=== PATIENT | female | born 1950 | race Caucasian/White ===

== ENCOUNTER 2021-11-05 09:26 | Outpatient (REF) | payer MEDICARE, SELFPAY ==
[2021-11-05 11:38] LABS: MANUAL DIFF FLAG NO
[2021-11-05 11:50] LABS: Basophils Percent Auto 0.9 % (0-2); Eosinophils Absolute Auto 0.1 X10*3/uL (0.0-0.4); Hematocrit 41.6 % (37.0-47.0); Imm Gran Abs Auto 0.01 X10*3/uL (0.00-0.03); Imm Gran Pct Auto 0.2 % (0.0-0.4); Lymphocytes Absolute Auto 1.7 X10*3/uL (1.2-4.9); Lymphocytes Percent Auto 35.8 % (20-40); Mean Corpuscular HGB Conc 33.7 g/dl (31.0-35.0); Mean Corpuscular Hemoglobin 29.4 pg (27.0-33.0); Mean Corpuscular Volume 87.2 fL (80.0-98.0); Mean Platelet Volume 9.2 fL (9.4-12.3); Monocytes Absolute Auto 0.3 X10*3/uL (0.1-1.2); Monocytes Percent Auto 5.4 % (2-11); Neutrophils Absolute Auto 2.5 x10*3/uL (2.0-8.3); Neutrophils Percent Auto 54.7 % (45-73); Platelet Count 279 X10*3/uL (160-400); Red Blood Count 4.77 X10*6/uL (4.20-5.50); White Blood Count 4.6 X10*3/uL (4.8-10.8)
[2021-11-05 12:17] LABS: Vitamin D 25-OH Total 24.1 ng/mL (>30)
[2021-11-05 12:28] LABS: Folate 8.5 ng/mL (> or = 4.0); Vitamin B12 173 pg/mL (200-900)
[2021-11-05 12:42] LABS: Alanine Aminotransferase 21 U/L (0-31); Albumin Level 4.2 g/dL (3.5-5.0); Alkaline Phosphatase 85 U/L (39-117); Anion Gap 14 (12-20); Aspartate Amino Transferase 28 U/L (5-31); Bilirubin Total 0.7 mg/dL (0.0-1.0); Blood Urea Nitrogen 17 mg/dL (9-16); Calcium 10.5 mg/dL (8.4-10.2); Carbon Dioxide 24 mmol/L (22-29); Chloride 110 mmol/L (96-108); Cholesterol 192 mg/dL; Estimated Glomerular Filt Rate > 60; Glucose Fasting 100 mg/dL (60-99); HDL Cholesterol 69 mg/dL; LDL Cholesterol Calculated 108 mg/dl; Potassium 4.6 mmol/L (3.3-5.1); Sodium 143 mmol/L (135-145); Total Protein 6.6 g/dL (6.5-8.0); Triglycerides 78 mg/dL
== END 2021-11-05 09:27 | disposition home or self-care (01) ==
LOC: HO.HMGCLDS 09:26
PROVIDERS: PCP Internal Medicine; Visit Provider Internal Medicine
DX: Z00.00 Encounter for general adult medical examination without abnormal findings (principal); E53.8 Deficiency of other specified B group vitamins; E55.9 Vitamin D deficiency, unspecified
CPT/HCPCS: 36415; 80053; 80061; 82306; 82607; 82746; 84443; 85025

== ENCOUNTER 2022-02-05 09:44 | Outpatient (REF) | payer MEDICARE, SELFPAY ==
[2022-02-05 12:56] LABS: Vitamin D 25-OH Total 32.1 ng/mL (>30)
[2022-02-05 13:00] LABS: Folate 9.8 ng/mL (> or = 4.0); Vitamin B12 534 pg/mL (200-900)
[2022-02-09 11:43] LABS: Calcium, Ionized 6.1 mg/dL (4.8-5.6)
== END 2022-02-05 09:45 | disposition home or self-care (01) ==
LOC: HO.HMGCLDS 09:44
PROVIDERS: PCP Internal Medicine; Visit Provider Internal Medicine
DX: E53.8 Deficiency of other specified B group vitamins (principal); E55.9 Vitamin D deficiency, unspecified
CPT/HCPCS: 36415; 82306; 82330; 82607; 82746

== ENCOUNTER → 2022-02-10 15:33 | Outpatient (BNVA) | payer MEDICARE, SELFPAY | PROVIDERS: PCP Internal Medicine; Visit Provider Internal Medicine Endocrinology, Diabetes & Metabolism | DX: E83.52 Hypercalcemia (principal) | CPT/HCPCS: 99202 ==

== ENCOUNTER 2022-03-02 10:09 | Outpatient (REF) | payer MEDICARE, SELFPAY ==
[2022-03-02 11:03] LABS: Creatinine, mg/dL 98.02
[2022-03-02 12:44] LABS: Total Volume 24 Hour Urine 1050 mL
[2022-03-05 21:38] LABS: Calcium, 24 Hr Urine 260 mg/24 h; Calcium/Creatinine Ratio 261 mg/g creat (30-275)
== END 2022-03-02 10:10 | disposition home or self-care (01) ==
LOC: HO.LNP 10:09
PROVIDERS: Visit Provider Internal Medicine Endocrinology, Diabetes & Metabolism
DX: E83.52 Hypercalcemia (principal)
CPT/HCPCS: 82340; 82570

== ENCOUNTER 2022-03-09 09:14 | Outpatient (REF) | payer MEDICARE, SELFPAY ==
--- NOTE | ~2022-03-09 | MM_ITS ---
EXAMINATION: BONE DENSITOMETRY CLINICAL INDICATION: Hypercalcemia. COMPARISON: None (current study represents initial baseline exam). TECHNIQUE: Using a [employer] DXA System (software version: 13.1) manufactured by [employer], dual-energy x-ray absorptiometry was performed of the lumbar spine and left hip. The images are of good technical quality. Summary results are attached. FINDINGS: AP SPINE L1-L3 (excluding L4): The data of L1-L4 has been changed to exclude the L4 vertebral body, because degenerative changes at this level may cause overestimation of lumbar spine density. BMD 0.755 g/cm2, Z-score -1.8, T-score -3.5, osteoporosis. LEFT FEMUR, NECK: BMD 0.733 g/cm2, Z-score -0.4, T-score -2.2, osteopenia. LEFT FEMUR, TOTAL: BMD 0.743 g/cm2, Z-score -0.5, T-score -2.1, osteopenia. IDENTIFIED RISK FACTORS: Family history (parent hip fracture), menopause. HISTORY OF FRACTURE: None listed. MEDICATIONS: Vitamin D. MM/XR DEXA axial skeleton IMPRESSION: 1. DIAGNOSIS: Osteoporosis based on the lowest T-score value of -3.5 in the lumbar spine applying World Health Organization criteria. 2. 10-YEAR FRACTURE RISK PREDICTION, FRAX: According to the guidelines, FRAX calculation should only be performed on patients in the osteopenia bone density category. Therefore, FRAX was not performed on this patient. 3. Treatment Recommendations: NOF guidelines recommend consideration for treatment in postmenopausal women and men age 50 and older presenting with the following: -A hip or vertebral (clinical or morphometric) fracture. -T-score less than or equal to -2.5 at the femoral neck or spine after appropriate evaluation to exclude secondary causes. -Low bone mass at the hip or spine and a 10-year fracture probability by FRAX of greater than or equal to 3% for hip fracture or greater than or equal to 20% for major osteoporotic fracture based on the [place] adapted WHO algorithm. 4. Other Recommendations: All treatment decisions require clinical judgment and consideration of individual patient factors, including patient preferences, comorbidities, previous drug use, risk factors not captured in the FRAX model (e.g. frailty, falls, vitamin D deficiency, increased bone turnover, interval significant decline in bone density) and possible under or overestimation of fracture risk by FRAX. Additional medical evaluation for secondary cause of low bone mineral density may be appropriate. FUTURE SCAN RECOMMENDATION: People with diagnosed cases of osteoporosis or at high risk for fracture should have regular bone mineral density tests. For patients eligible for Medicare, routine testing is allowed once every 2 years. The testing frequency can be increased to one year for patients who have rapidly progressing disease, those who are receiving or discontinuing medical therapy to restore bone mass, or have additional risk factors.
== END 2022-03-09 09:15 | disposition home or self-care (01) ==
LOC: HO.MAMMO 09:14
PROVIDERS: Visit Provider Internal Medicine Endocrinology, Diabetes & Metabolism
DX: Z13.820 Encounter for screening for osteoporosis (principal); Z78.0 Asymptomatic menopausal state; M81.0 Age-related osteoporosis without current pathological fracture; E83.52 Hypercalcemia
CPT/HCPCS: 77080

== ENCOUNTER 2022-03-15 15:21 | Outpatient (REF) | payer MEDICARE, SELFPAY ==
--- NOTE | ~2022-03-15 | US_ITS ---
EXAMINATION: US RETROPERITONEAL LIMITED (RENAL ONLY) CLINICAL INFORMATION: Hypercalcemia. COMPARISON: None TECHNIQUE: Real-time imaging of the kidneys. FINDINGS: RIGHT KIDNEY: 10.1 x 4.1 x 4.9 cm (SAG x AP x TRV). The kidney is normal in size, contour, and echogenicity. Renal cortical thickness is normal. No renal calculi or hydronephrosis. Benign-appearing renal cysts measuring up to 1.7 cm. LEFT KIDNEY: 10.3 x 4.0 x 4.0 cm (SAG x AP x TRV). The kidney is normal in size, contour, and echogenicity. Renal cortical thickness is normal. No renal calculi or hydronephrosis. Benign-appearing subcentimeter cysts. US/US renal BI IMPRESSION: Bilateral benign-appearing renal cysts. Followup imaging is not routinely recommended for benign appearing cysts.
== END 2022-03-15 15:22 | disposition home or self-care (01) ==
LOC: HO.HMGCX 15:21
PROVIDERS: PCP Internal Medicine; Visit Provider Internal Medicine Endocrinology, Diabetes & Metabolism
DX: E83.52 Hypercalcemia (principal)
CPT/HCPCS: 76775

== ENCOUNTER → 2022-03-30 10:35 | Outpatient (BNVA) | payer MEDICARE, SELFPAY | PROVIDERS: PCP Internal Medicine; Visit Provider Internal Medicine Endocrinology, Diabetes & Metabolism | DX: E83.52 Hypercalcemia (principal); E21.0 Primary hyperparathyroidism | CPT/HCPCS: 99212 ==

== ENCOUNTER 2022-05-12 08:33 | Outpatient (REF) | payer MEDICARE, SELFPAY ==
--- NOTE | ~2022-05-12 | XR_ITS ---
EXAMINATION: XR RIBS, LEFT CLINICAL INFORMATION: Pain COMPARISON: None TECHNIQUE: Single view of the chest and 3 detailed views of the left ribs FINDINGS: Chest image demonstrates no evidence for effusion. No pneumothorax. The cardiac silhouette is within normal limits. Detailed imaging of the left ribs does not demonstrate evidence of fracture. No underlying rib finding. Degenerative change in left shoulder is noted. XR/XR ribs LT min 3V w CXR1V IMPRESSION: No pneumothorax or effusion. No underlying left rib fracture.
== END 2022-05-12 08:34 | disposition home or self-care (01) ==
LOC: HO.HMGCX 08:33
PROVIDERS: PCP Internal Medicine; Visit Provider Nurse Practitioner Family
DX: R07.81 Pleurodynia (principal)
CPT/HCPCS: 71101

== ENCOUNTER 2022-09-22 09:04 | Outpatient (AMB) | payer MEDICARE, SELFPAY ==
--- NOTE | 2022-09-22 09:08 | A.OFFVIS_ITS ---
Intake Vital Signs 09/22/22 09:09 Height 5 ft 5 in Weight 142 lb 3.17 oz BMI 23.7 BP 106/70 Blood Pressure Location Lt brachial Position Sitting Pulse 72 Pulse Source Pulse Oximeter Intake Visit Reasons: Hyperparathyroidism, post surgery Intake Note: Patient present for Hyperparathyroidism, post surgery follow up visit. Nurse Anesthesia Program Director Required: No Accompanied by: Self / Same As Patient Allergies No Known Allergies Allergy (Verified 09/22/22 09:10) Medication List - Last Reconciled 09/22/22 by Ricardo Thakkar MD [id number] 325 mg-12.5 mcg -2.75 mg (Citracal-D3 Maximum Plus) 2 tabs PO DAILY cyanocobalamin (vitamin B-12) 1,000 mcg PO DAILY HPI HPI Comments History of Present Illness Details This 72-year-old white female with history of primary hyperparathyroidism status post removal [address] Sena with normalization of PTH. PFSH Medical History Hx of complete eye exam Surgical History H/O colonoscopy H/O tubal ligation Hx of appendectomy Hx of parathyroidectomy Family History Father No problems noted. Mother COPD (chronic obstructive pulmonary disease) Congestive heart failure Social History Household Members: None Household Members Other:: lives alone, 3 daughters (in [place] and [place]), retired Housing: House Patient Tobacco Use Status: Former Tobacco user e-Cigarette/Vaping Use: Never Used Current occupational status: retired Cognitive needs: No Hearing needs: No Vision needs: Yes Physical Exam Vital Signs: BMI result Body Mass Index 23.7 Assessment & Plan Assessment & Plan (1) Hypercalcemia: Code(s): E83.52 - Hypercalcemia Plan: 72-year-old white female with a history of primary hyperparathyroidism status post parathyroidectomy. Pathology revealed 3 hyperplastic parathyroid glands. Plan is to recheck calcium and PTH. Assuming above is normal, patient returned to the care of her primary care provider and endocrinology as needed Orders: Orders PTHI Today E83.52 - Hypercalcemia Coding Level of Care Code Est Pt Level 3 (91049) Diagnoses Hypercalcemia E83.52
[2022-09-22 09:09] VITALS: BP 106/70; PULSE 72; BMI 23.7
== END 2022-09-22 09:46 | disposition home or self-care (01) ==
PROVIDERS: PCP Internal Medicine; Visit Provider Internal Medicine Endocrinology, Diabetes & Metabolism
DX: E83.52 Hypercalcemia (principal)
CPT/HCPCS: 99213

== ENCOUNTER → 2022-09-22 09:04 | Outpatient (BNVA) | payer MEDICARE, SELFPAY | PROVIDERS: Visit Provider Internal Medicine Endocrinology, Diabetes & Metabolism | DX: E83.52 Hypercalcemia (principal) | CPT/HCPCS: 99212 ==

== ENCOUNTER 2022-09-22 09:53 | Outpatient (REF) | payer MEDICARE, SELFPAY ==
[2022-09-22 13:44] LABS: Calcium 9.7 mg/dL (8.4-10.2)
[2022-09-25 05:43] LABS: Calcium (PTHI) 9.4 mg/dL (8.6-10.4); PTHI 45 pg/mL (16-77)
== END 2022-09-22 09:54 | disposition home or self-care (01) ==
LOC: HO.10HDL 09:53
PROVIDERS: Visit Provider Internal Medicine Endocrinology, Diabetes & Metabolism
DX: E83.52 Hypercalcemia (principal)
CPT/HCPCS: 36415; 82310; 83970

== ENCOUNTER 2022-12-06 11:21 | Outpatient (AMB) | payer MEDICARE, SELFPAY ==
[2022-12-06 11:44] VITALS: BP 100/66; PULSE 66; O2SAT 96; BMI 23.6
--- NOTE | 2022-12-06 11:44 | A.OFFPC_ITS ---
Vital Signs 12/06/22 11:44 Height 5 ft 5 in Weight 142 lb BMI 23.6 BP 100/66 Blood Pressure Location Lt brachial Position Sitting Pulse 66 Pulse Source Pulse Oximeter Pulse Oximetry (%) 96 Oxygen Delivery Method Room Air Intake Visit Reasons: Annual PE Intake Note: Pt is here today for PE. Allergies No Known Allergies Allergy (Verified 12/06/22 11:46) Medication List - Last Reconciled 12/06/22 by Shelia Krishnan MD [id number] 325 mg-12.5 mcg -2.75 mg (Citracal-D3 Maximum Plus) 2 tabs PO DAILY cyanocobalamin (vitamin B-12) 1,000 mcg PO DAILY Tobacco use date assessed: 12/06/22 Fall risk assessment: 1 Fall in past year Last assessed Fall Risk: 12/06/22 Dental Screening Dental Screen Date: 12/06/22 Did you have a dental visit in the last 12 months?: Yes Did you have a dental problem in the last 6 months where you did not have access to dental care?: No Was dental information given to patient?: Patient has dentist HPI Annual PE HPI Details Pt presents for PE. Pt reports feeling sad, depressed, and lonely since she retired. She thinks her adult children do spend enough time with her or call her as often as she would prefer. Patient denies suicidal ideation. She tried medications in the past with good effect. [facility] Medical History Hx of complete eye exam Surgical History Hx of parathyroidectomy H/O colonoscopy Hx of appendectomy H/O tubal ligation Family History Father No problems noted. Mother COPD (chronic obstructive pulmonary disease) Congestive heart failure Social History Household Members: None Household Members Other:: lives alone, 3 daughters (in [place] and [place]), retired Housing: House Patient Tobacco Use Status: Former Tobacco user e-Cigarette/Vaping Use: Never Used Current occupational status: retired Cognitive needs: No Hearing needs: No Vision needs: Yes Questionnaire PHQ-9 Over the last 2 weeks, how often have you been bothered by any of the following problems? 1. Little interest or pleasure in doing things: nearly every day 2. Feeling down, depressed, or hopeless: nearly every day 3. Trouble falling or staying asleep, or sleeping too much: nearly every day 4. Feeling tired or having little energy: more than half the days 5. Poor appetite or overeating: more than half the days 6. Feeling bad about yourself - or that you are a failure or have let yourself or your family down: more than half the days 7. Trouble concentrating on things, such as reading the newspaper or watching television: more than half the days 8. Moving or speaking so slowly that other people could have noticed. Or the opposite - being so fidgety or restless that you have been moving around a lot more than usual: not at all 9. Thoughts that you would be better off or of hurting yourself in some way: not at all Total score: 17 Depression Screening Interpretation: Positive Source: Developed by Drs. Ricardo Campuzano, Cynthia Qureshi, Miguel Meraz and colleagues, with an educational peace from [employer] Thrive Questionnaire Date Thrive assessed: 12/06/22 I am a: Patient What is your living situation today?: I have a steady place to live Within the past 12 months, did the food you bought not last and you didn't have the money to get more?: Never true Within the past 12 months, did you worry whether your food would run out before you got money to buy more?: Never true Do you have trouble paying for medicines?: No Do you have trouble getting transportation to medical appointments?: No Do you have trouble paying your heating and electricity bill?: No Do you have trouble taking care of your child, family member or friend?: No Do you have trouble with day-to-day activities such as bathing, preparing meals, shopping, managing finances, etc.?: Yes Are you currently unemployed and looking for a job?: No Are you interested in more education?: No AUDIT C Alcohol Use Questionnaire (AUDIT-C) 1. How often do you have a drink containing alcohol?: Monthly or less 2. How many drinks containing alcohol do you have on a typical day when you are drinking?: 1 or 2 3. How often do you have six or more drinks on one occasion?: Never Total Score: 1 RENU-7 AMB Questionnaire RENU-7 Date RENU - 7 assessed: 12/06/22 Feeling nervous, anxious, or on edge: 3 = Nearly every day Not being able to stop or control worryin = Nearly every day Worrying too much about different things: 3 = Nearly every day Trouble relaxin = More than half the days Being so restless that it is hard to sit still: 0 = Not at all Becoming easily annoyed or irritable: 2 = More than half the days Feeling afraid as if something awful might happen: 1 = Several days Total RENU-7 score (0-4 normal; 5-9 mild; 10-14 moderate; 15-21 severe): 14 Source: Developed by Drs. Ricardo Campuzano, Cynthia Qureshi, Miguel Meraz and colleagues, with an educational peace from [employer] Review of Systems Const All systems reviewed & are unremarkable except as noted in HPI and below Reports no additional complaints Eyes Reports no additional complaints ENT Reports no additional complaints Card Reports no additional complaints Resp Reports no additional complaints GI Reports no additional complaints Reports no additional complaints Physical exam (Primary Care) Vital Signs: Last Vital Signs Pulse 66 12/06/22 11:44 BP 100/66 12/06/22 11:44 Pulse Ox 96 12/06/22 11:44 Oxygen Delivery Method Room Air 12/06/22 11:44 BMI result Body Mass Index 23.6 Tobacco/Smoking Status: Tobacco use Status Tobacco use date assessed 12/06/22 12/06/22 11:50 Patient Tobacco Use Status Former Tobacco user 12/06/22 11:50 e-Cigarette/Vaping Use Never Used 12/06/22 11:50 PHQ-9: PHQ-9 Score PHQ-9: Total score 17 12/06/22 12:20 Depression Screening Interpretation: Positive Thrive Assessment: Date of Thrive Assessment Date Thrive assessed 12/06/22 12/06/22 12:20 Const General: no acute distress HENMT Head: Yes normal to inspection General nose exam: Normal external nose present Mouth: Normal oral and palatal mucosa present Eyes General: appearance normal, both eyes and all related structures Neck Neck: Yes no lymphadenopathy and Yes supple Resp Effort & Inspection: normal respiratory effort Auscultation: clear to auscultation bilaterally Cardio Rhythm: regular rhythm Heart sounds: S1 normal heart sound present and S2 normal heart sound present GI Inspection: Yes normal to inspection Palpation (GI): Soft to palpation Percussion: Yes normal to percussion Auscultation: normal bowel sounds Assessment and Plan Assessment & Plan (1) Hypercalcemia: Comment: S/P parathyroidectomy Code(s): E83.52 - Hypercalcemia Plan: Follow-up with endocrinology (2) Annual physical exam: Code(s): Z00.00 - Encounter for general adult medical examination without abnormal findings (3) Vitamin D deficiency: Code(s): E55.9 - Vitamin D deficiency, unspecified Plan: Well-balanced diet regular physical activity discussed with the patient. She is up-to-date with the mammogram and colonoscopy. (4) Anxiety and depression: Code(s): F41.9 - Anxiety disorder, unspecified; F32.A - Depression, unspecified Plan: Patient will be referred to counseling and Zoloft 25 mg daily will be started. She will follow-up in 6 weeks Orders: Orders Lipid Panel Today E55.9 - Vitamin D deficiency, unspecified, E83.52 - Hypercalcemia, Z00.00 - Encounter for general adult medical examination without abnormal findings Comprehensive [place]. Panel Fast 365 Days F32.A - Depression, unspecified, F41.9 - Anxiety disorder, unspecified Complete Blood Count Auto Diff 365 Days E53.8 - Deficiency of other specified B group vitamins, E55.9 - Vitamin D deficiency, unspecified, F32.A - Depression, unspecified, F41.9 - Anxiety disorder, unspecified, Z00.00 - Encounter for general adult medical examination without abnormal findings Comprehensive [place]. Panel Fast Today E55.9 - Vitamin D deficiency, unspecified, E83.52 - Hypercalcemia, Z00.00 - Encounter for general adult medical examination without abnormal findings Complete Blood Count Auto Diff Today E55.9 - Vitamin D deficiency, unspecified, E83.52 - Hypercalcemia, Z00.00 - Encounter for general adult medical examination without abnormal findings Lipid Panel 365 Days F32.A - Depression, unspecified, F41.9 - Anxiety disorder, unspecified TSH reflex Free T4 365 Days F32.A - Depression, unspecified, F41.9 - Anxiety disorder, unspecified Referrals Counseling Referral F32.A - Depression, unspecified, F41.9 - Anxiety disorder, unspecified Medications: New sertraline (Zoloft) 25 mg PO DAILY 90 tabs 0RF Coding Level of Care Code Est Pt Prev Care >65y(26582) Diagnoses Hypercalcemia E83.52 Annual physical exam Z00.00 Vitamin D deficiency E55.9 Anxiety and depression F41.9; F32.A
== END 2022-12-06 12:38 | disposition home or self-care (01) ==
PROVIDERS: Visit Provider Internal Medicine
DX: Z00.00 Encounter for general adult medical examination without abnormal findings (principal); E83.52 Hypercalcemia; F41.9 Anxiety disorder, unspecified; F32.A Depression, unspecified
CPT/HCPCS: 99397

== ENCOUNTER 2022-12-14 08:44 | Outpatient (REF) | payer MEDICARE, SELFPAY | END 2022-12-14 08:45 | disposition home or self-care (01) | LOC: HO.HMGCLDS 08:44 | PROVIDERS: PCP Internal Medicine; Visit Provider Internal Medicine | DX: Z00.00 Encounter for general adult medical examination without abnormal findings (principal); E55.9 Vitamin D deficiency, unspecified | CPT/HCPCS: 36415; 80053; 80061; 85025 ==

== ENCOUNTER 2023-01-17 10:54 | Outpatient (AMB) | payer MEDICARE, SELFPAY ==
--- NOTE | 2023-01-17 11:08 | MHC.PC.OV ---
Vital Signs 01/17/23 11:16 Height 5 ft 5 in Weight 148 lb BMI 24.6 BP 110/72 Blood Pressure Location Lt brachial Position Sitting Pulse 52 Pulse Source Pulse Oximeter Pulse Oximetry (%) 96 Oxygen Delivery Method Room Air Intake Visit Reasons: 6 week follow up Allergies No Known Allergies Allergy (Verified 01/17/23 11:17) Medication List - Last Reconciled 01/17/23 by Shelia Krishnan MD [id number]-jono 325 mg-12.5 mcg -2.75 mg (Citracal-D3 Maximum Plus) 2 tabs PO DAILY cyanocobalamin (vitamin B-12) 1,000 mcg PO DAILY sertraline (Zoloft) 25 mg PO DAILY Tobacco use date assessed: 12/06/22 Fall risk assessment: 1 Fall in past year Last assessed Fall Risk: 01/17/23 HPI 6 week follow up HPI Details Pt presents for f/u anxiety, slightly better. Patient still complains of insomnia and occasionally feeling lonely. She has been getting more involved with senior center and meeting new people. Pt is going on vacation to [facility] for Thanksgiving. Patient had a biopsy of right foot lesion by shochet and reports area getting red painful and slightly swollen. [facility] Medical History Hx of complete eye exam Surgical History Hx of parathyroidectomy H/O colonoscopy Hx of appendectomy H/O tubal ligation Family History Father No problems noted. Mother COPD (chronic obstructive pulmonary disease) Congestive heart failure Social History Household Members: None Household Members Other:: lives alone, 3 daughters (in [place] and [place]), retired Housing: House Patient Tobacco Use Status: Former Tobacco user e-Cigarette/Vaping Use: Never Used Current occupational status: retired Cognitive needs: No Hearing needs: No Vision needs: Yes Questionnaire Thrive Questionnaire Date Thrive assessed: 12/06/22 RENU-7 AMB Questionnaire RENU-7 Date RENU - 7 assessed: 12/06/22 Source: Developed by Cynthia De León B.W. Titus, Miguel Meraz and colleagues, with an educational peace from [employer]. Review of Systems Const All systems reviewed & are unremarkable except as noted in HPI and below Reports no additional complaints Eyes Reports no additional complaints ENT Reports no additional complaints Card Reports no additional complaints Resp Reports no additional complaints GI Reports no additional complaints Physical exam (Primary Care) Vital Signs: Last Vital Signs Pulse 52 01/17/23 11:16 BP 110/72 01/17/23 11:16 Pulse Ox 96 01/17/23 11:16 Oxygen Delivery Method Room Air 01/17/23 11:16 BMI result Body Mass Index 24.6 Tobacco/Smoking Status: Tobacco use Status Tobacco use date assessed 12/06/22 01/17/23 11:09 Patient Tobacco Use Status Former Tobacco user 01/17/23 11:09 e-Cigarette/Vaping Use Never Used 01/17/23 11:09 Thrive Assessment: Date of Thrive Assessment Date Thrive assessed 12/06/22 01/17/23 11:09 Const General: well developed HENMT Mouth: Normal oral and palatal mucosa present Resp Effort & Inspection: normal respiratory effort Auscultation: clear to auscultation bilaterally Cardio Rhythm: regular rhythm Heart sounds: S1 normal heart sound present and S2 normal heart sound present GI Inspection: Yes normal to inspection Percussion: Yes normal to percussion Skin Other: Dorsum of Right foot medial aspect scab with slight erythema and tenderness, no purulent discharge Assessment and Plan Assessment & Plan (1) Anxiety and depression: Code(s): F41.9 - Anxiety disorder, unspecified; F32.A - Depression, unspecified Plan: Increase Zoloft to 50 mg a day, patient declined counseling (2) Skin infection: Code(s): L08.9 - Local infection of the skin and subcutaneous tissue, unspecified Plan: Keflex for 7 day is prescribed and skin care discussed with the patient Medications: New cephalexin 500 mg PO BID 7 days 14 caps 0RF sertraline 50 mg PO DAILY 90 tabs 0RF Coding Level of Care Code Est Pt Level 4 (75138) Diagnoses Anxiety and depression F41.9; F32.A Skin infection L08.9
[2023-01-17 11:16] VITALS: BP 110/72; PULSE 52; O2SAT 96; BMI 24.6
== END 2023-01-17 11:50 | disposition home or self-care (01) ==
PROVIDERS: PCP Internal Medicine; Visit Provider Internal Medicine
DX: F41.9 Anxiety disorder, unspecified (principal); F32.A Depression, unspecified; L08.9 Local infection of the skin and subcutaneous tissue, unspecified
CPT/HCPCS: 99214

== ENCOUNTER 2023-05-24 12:26 | Outpatient (AMB) | payer MEDICARE, SELFPAY ==
--- NOTE | 2023-05-24 12:38 | MHC.PC.OV ---
Vital Signs 05/24/23 12:41 Weight 152 lb BP 110/68 Blood Pressure Location Rt brachial Position Sitting Pulse 70 Pulse Source Pulse Oximeter Pulse Oximetry (%) 98 Oxygen Delivery Method Room Air Intake Visit Reasons: 3M. F/U-Medications Intake Note: Patient here to follow up on medication and states she believes its helping. Child Care Center Administrator Required: No Allergies No Known Allergies Allergy (Verified 05/24/23 12:42) Medication List - Last Reconciled 05/24/23 by Shelia Krishnan MD [id number] 325 mg-12.5 mcg -2.75 mg (Citracal-D3 Maximum Plus) 2 tabs PO DAILY cyanocobalamin (vitamin B-12) 1,000 mcg PO DAILY sertraline 50 mg PO DAILY Tobacco use date assessed: 05/24/23 Fall risk assessment: No Falls in past year Last assessed Fall Risk: 05/24/23 Dental Screening Dental Screen Date: 05/24/23 Did you have a dental visit in the last 12 months?: Yes Did you have a dental problem in the last 6 months where you did not have access to dental care?: No Was dental information given to patient?: Patient has dentist HPI 3M. F/U-Medications HPI Details Pt presents for anxiety, better on Zoloft. Patient has been exercising regularly. She reports occasionally insomnia better if she exercises. Patient denies depression or suicidal ideation PFSH Medical History Hx of complete eye exam Surgical History Hx of parathyroidectomy H/O colonoscopy Hx of appendectomy H/O tubal ligation Family History Father No problems noted. Mother COPD (chronic obstructive pulmonary disease) Congestive heart failure Social History Household Members: None Household Members Other:: lives alone, 3 daughters (in [place] and [place]), retired Housing: House Patient Tobacco Use Status: Former Tobacco user e-Cigarette/Vaping Use: Never Used Current occupational status: retired Cognitive needs: No Hearing needs: No Vision needs: Yes Questionnaire Thrive Questionnaire Date Thrive assessed: 12/06/22 RENU-7 AMB Questionnaire RENU-7 Date RENU - 7 assessed: 12/06/22 Source: Developed by Drs. Ricardo Campuzano, Cynthia Qureshi, Miguel Meraz and colleagues, with an educational peace from [employer]. Review of Systems Const All systems reviewed & are unremarkable except as noted in HPI and below Reports no additional complaints Eyes Reports no additional complaints ENT Reports no additional complaints Card Reports no additional complaints Resp Reports no additional complaints GI Reports no additional complaints Reports no additional complaints Physical exam (Primary Care) Vital Signs: Last Vital Signs Pulse 70 05/24/23 12:41 BP 110/68 05/24/23 12:41 Pulse Ox 98 05/24/23 12:41 Oxygen Delivery Method Room Air 05/24/23 12:41 Tobacco/Smoking Status: Tobacco use Status Tobacco use date assessed 05/24/23 05/24/23 12:44 Patient Tobacco Use Status Former Tobacco user 05/24/23 12:41 e-Cigarette/Vaping Use Never Used 05/24/23 12:41 Thrive Assessment: Date of Thrive Assessment Date Thrive assessed 12/06/22 05/24/23 12:41 Const General: no acute distress HENMT Ears: hearing grossly normal bilaterally Neck Neck: Yes supple Resp Effort & Inspection: normal respiratory effort Auscultation: clear to auscultation bilaterally Cardio Rhythm: regular rhythm Heart sounds: S1 normal heart sound present and S2 normal heart sound present Assessment and Plan Assessment & Plan (1) Anxiety and depression: Code(s): F41.9 - Anxiety disorder, unspecified; F32.A - Depression, unspecified Plan: Continue sertraline, referral for counseling. Physical in 6 months with a fasting labs before Orders: Referrals Counseling Referral F32.A - Depression, unspecified, F41.9 - Anxiety disorder, unspecified Medications: Refilled sertraline 50 mg PO DAILY 90 tabs 3RF Coding Level of Care Code Est Pt Level 3 (58620) Diagnoses Anxiety and depression F41.9; F32.A
[2023-05-24 12:41] VITALS: BP 110/68; PULSE 70; O2SAT 98
== END 2023-05-24 14:03 | disposition home or self-care (01) ==
PROVIDERS: PCP Internal Medicine; Visit Provider Internal Medicine
DX: F41.9 Anxiety disorder, unspecified (principal); F32.A Depression, unspecified
CPT/HCPCS: 99213

== ENCOUNTER 2024-01-04 09:31 | Outpatient (REF) | payer MEDICARE, SELFPAY ==
[2024-01-04 13:08] LABS: MANUAL DIFF FLAG NO
[2024-01-04 13:24] LABS: Basophils Absolute Auto 0.1 X10*3/uL (0.0-0.2); Eosinophils Absolute Auto 0.1 X10*3/uL (0.0-0.4); Eosinophils Percent Auto 1.5 % (0-4); Hematocrit 40.5 % (37.0-47.0); Hemoglobin 13.7 g/dl (12.0-16.0); Imm Gran Abs Auto 0.01 X10*3/uL (0.00-0.03); Imm Gran Pct Auto 0.2 % (0.0-0.4); Lymphocytes Absolute Auto 1.8 X10*3/uL (1.2-4.9); Lymphocytes Percent Auto 36.5 % (20-40); Mean Corpuscular HGB Conc 33.8 g/dl (31.0-35.0); Mean Corpuscular Hemoglobin 29.2 pg (27.0-33.0); Mean Corpuscular Volume 86.4 fL (80.0-98.0); Mean Platelet Volume 9.1 fL (9.4-12.3); Monocytes Absolute Auto 0.2 X10*3/uL (0.1-1.2); Neutrophils Absolute Auto 2.7 x10*3/uL (2.0-8.3); Neutrophils Percent Auto 55.8 % (45-73); Platelet Count 277 X10*3/uL (160-400); Red Blood Count 4.69 X10*6/uL (4.20-5.50); Red Cell Distribution Width 13.2 % (11.0-16.0); White Blood Count 4.8 X10*3/uL (4.8-10.8)
[2024-01-04 13:34] LABS: Alanine Aminotransferase 23 U/L (0-31); Albumin Level 4.1 g/dL (3.5-5.0); Alkaline Phosphatase 58 U/L (39-117); Anion Gap 14 (12-20); Aspartate Amino Transferase 30 U/L (5-31); Bilirubin Total 0.7 mg/dL (0.0-1.0); Blood Urea Nitrogen 18 mg/dL (9-16); Calcium 8.9 mg/dL (8.4-10.2); Carbon Dioxide 25 mmol/L (22-29); Chloride 106 mmol/L (96-108); Cholesterol 205 mg/dL (<200); Estimated Glomerular Filt Rate > 60; Glucose Fasting 90 mg/dL (60-99); HDL Cholesterol 76 mg/dL (>40); LDL Cholesterol Calculated 113 mg/dL (<100); Potassium 3.7 mmol/L (3.3-5.1); Sodium 141 mmol/L (135-145); Triglycerides 82 mg/dL (<150)
[2024-01-04 13:55] LABS: TSH reflex Free T4 1.99 uIU/mL (0.32-4.0)
== END 2024-01-04 09:32 | disposition home or self-care (01) ==
LOC: HO.HMGCLDS 09:31
PROVIDERS: PCP Internal Medicine; Visit Provider Internal Medicine
DX: Z00.00 Encounter for general adult medical examination without abnormal findings (principal); F41.9 Anxiety disorder, unspecified; F32.A Depression, unspecified; E55.9 Vitamin D deficiency, unspecified; E53.8 Deficiency of other specified B group vitamins
CPT/HCPCS: 36415; 80053; 80061; 84443; 85025

== ENCOUNTER 2024-01-26 10:09 | Outpatient (AMB) | payer MEDICARE, SELFPAY ==
[2024-01-26 10:15] VITALS: BP 120/70; PULSE 75; O2SAT 96; BMI 26.0
--- NOTE | 2024-01-26 10:15 | MHC.PC.OV ---
Vital Signs 01/26/24 10:15 Height 5 ft 5 in Weight 156 lb BMI 26.0 BP 120/70 Blood Pressure Location Lt brachial Position Sitting Pulse 75 Pulse Source Pulse Oximeter Pulse Oximetry (%) 96 Oxygen Delivery Method Room Air Intake Visit Reasons: PE Intake Note: Pt is here today for PE. Allergies No Known Allergies Allergy (Verified 01/26/24 10:17) Medication List - Last Reconciled 01/26/24 by Shelia Krishnan MD [id number]-copper-jono 325 mg-12.5 mcg -2.75 mg (Citracal-D3 Maximum Plus) 2 tabs PO DAILY cyanocobalamin (vitamin B-12) 1,000 mcg PO DAILY sertraline 50 mg PO DAILY Tobacco use date assessed: 01/26/24 Fall risk assessment: No Falls in past year Last assessed Fall Risk: 01/26/24 Dental Screening Dental Screen Date: 05/24/23 HPI PE HPI Details Patient presents for physical PFSH Medical History Hx of complete eye exam Surgical History Hx of parathyroidectomy H/O colonoscopy Hx of appendectomy H/O tubal ligation Family History Father No problems noted. Mother COPD (chronic obstructive pulmonary disease) Congestive heart failure Social History Household Members: None Household Members Other:: lives alone, 3 daughters (in [place] and [place]), retired Housing: House Patient Tobacco Use Status: Former Tobacco user e-Cigarette/Vaping Use: Never Used service: No Current occupational status: retired Cognitive needs: No Hearing needs: No Vision needs: Yes Questionnaire PHQ-9 Over the last 2 weeks, how often have you been bothered by any of the following problems? 1. Little interest or pleasure in doing things: not at all 2. Feeling down, depressed, or hopeless: several days 3. Trouble falling or staying asleep, or sleeping too much: several days 4. Feeling tired or having little energy: not at all 5. Poor appetite or overeating: several days 6. Feeling bad about yourself - or that you are a failure or have let yourself or your family down: several days 7. Trouble concentrating on things, such as reading the newspaper or watching television: not at all 8. Moving or speaking so slowly that other people could have noticed. Or the opposite - being so fidgety or restless that you have been moving around a lot more than usual: not at all 9. Thoughts that you would be better off or of hurting yourself in some way: not at all Total score: 4 Depression Screening Interpretation: Negative Depression Screening Done: Yes 51634 - PHQ-9 Billing: Yes Source: Developed by Drs. Ricardo Campuzano, Cynthia Qureshi, Miguel Meraz and colleagues, with an educational peace from [employer]. Thrive Questionnaire Date Thrive assessed: 01/26/24 I am a: Patient What is your living situation today?: I have a steady place to live Within the past 12 months, did the food you bought not last and you didn't have the money to get more?: Never true Within the past 12 months, did you worry whether your food would run out before you got money to buy more?: Never true Do you have trouble paying for medicines?: No Do you have trouble getting transportation to medical appointments?: No Do you have trouble paying your heating and electricity bill?: No Do you have trouble taking care of your child, family member or friend?: No Do you have trouble with day-to-day activities such as bathing, preparing meals, shopping, managing finances, etc.?: No Are you currently unemployed and looking for a job?: No Are you interested in more education?: No Please select the resources that you would like help with: None THRIVE Score: 0 AUDIT C Alcohol Use Questionnaire (AUDIT-C) 1. How often do you have a drink containing alcohol?: Monthly or less 2. How many drinks containing alcohol do you have on a typical day when you are drinking?: 1 or 2 3. How often do you have six or more drinks on one occasion?: Never Total Score: 1 RENU-7 AMB Questionnaire RENU-7 Date RENU - 7 assessed: 01/26/24 Feeling nervous, anxious, or on edge: 1 = Several days Not being able to stop or control worryin = Several days Worrying too much about different things: 1 = Several days Trouble relaxin = Not at all Being so restless that it is hard to sit still: 0 = Not at all Becoming easily annoyed or irritable: 0 = Not at all Feeling afraid as if something awful might happen: 1 = Several days Total RENU-7 score (0-4 normal; 5-9 mild; 10-14 moderate; 15-21 severe): 4 Source: Developed by Drs. Ricardo Campuzano, Cynthia Qureshi, Miguel Meraz and colleagues, with an educational peace from [employer]. RENU-7 Assessment Billing RENU-7 Assessment Tool: RENU-7 Assessment 02350 Review of Systems Const All systems reviewed & are unremarkable except as noted in HPI and below Eyes Reports no additional complaints ENT Reports no additional complaints Card Reports no additional complaints Resp Reports no additional complaints GI Reports no additional complaints Reports no additional complaints Physical exam (Primary Care) Vital Signs: Last Vital Signs Pulse 75 01/26/24 10:15 BP 120/70 01/26/24 10:15 Pulse Ox 96 01/26/24 10:15 Oxygen Delivery Method Room Air 01/26/24 10:15 BMI result Body Mass Index 26.0 Tobacco/Smoking Status: Tobacco use Status Tobacco use date assessed 01/26/24 01/26/24 10:20 Patient Tobacco Use Status Former Tobacco user 01/26/24 10:20 e-Cigarette/Vaping Use Never Used 01/26/24 10:20 PHQ-9: PHQ-9 Score PHQ-9: Total score 4 01/26/24 11:21 Depression Screening Interpretation: Negative Thrive Assessment: Date of Thrive Assessment Date Thrive assessed 01/26/24 01/26/24 10:22 Const General: no acute distress HENMT Head: Yes normal to inspection Ears: hearing grossly normal bilaterally Mouth: Normal oral and palatal mucosa present Eyes General: appearance normal, both eyes and all related structures Resp Effort & Inspection: normal respiratory effort Auscultation: clear to auscultation bilaterally Cardio Rhythm: regular rhythm Heart sounds: S1 normal heart sound present and S2 normal heart sound present GI Inspection: Yes normal to inspection Palpation (GI): Soft to palpation Percussion: Yes normal to percussion Auscultation: normal bowel sounds Coding Level of Care Code Est Pt Prev Care >65y(73241) Diagnoses Annual physical exam Z00.00 Vitamin D deficiency E55.9 Vitamin B12 deficiency E53.8 Additional Codes RENU-7 Assessment Billing - RENU-7 Assessment Tool: RENU-7 Assessment 81725 ([id number]) PHQ-9 - 34377 - PHQ-9 Billing: Yes ([id number]) Assessment & Plan Assessment & Plan (1) Annual physical exam: Code(s): Z00.00 - Encounter for general adult medical examination without abnormal findings Category: Medical Plan: Well-balanced diet regular physical activity discussed with the patient. She is up-to-date with the mammogram (2) Vitamin D deficiency: Code(s): E55.9 - Vitamin D deficiency, unspecified Category: Medical Plan: Continue vitamin-D supplement (3) Vitamin B12 deficiency: Code(s): E53.8 - Deficiency of other specified B group vitamins Category: Medical Plan: Continue vitamin B12 supplement
== END 2024-01-26 14:14 | disposition home or self-care (01) ==
PROVIDERS: PCP Internal Medicine; Visit Provider Internal Medicine
DX: Z00.00 Encounter for general adult medical examination without abnormal findings (principal); E55.9 Vitamin D deficiency, unspecified; E53.8 Deficiency of other specified B group vitamins

== ENCOUNTER → 2024-01-26 10:09 | Outpatient (BNVA) | payer MEDICARE, SELFPAY | PROVIDERS: PCP Internal Medicine; Visit Provider Internal Medicine | DX: Z00.00 Encounter for general adult medical examination without abnormal findings (principal); E55.9 Vitamin D deficiency, unspecified; E53.8 Deficiency of other specified B group vitamins | CPT/HCPCS: 96127; 99397 ==

== ENCOUNTER 2024-08-09 12:02 | Outpatient (AMB) | payer MEDICARE, SELFPAY ==
[2024-08-09 12:49] VITALS: BP 110/68; PULSE 65; RESP 18; TEMP 36.8; O2SAT 95; BMI 27.3
--- NOTE | 2024-08-09 12:49 | MHC.PC.OV ---
Vital Signs 08/09/24 12:49 Height 5 ft 5 in Weight 164 lb BMI 27.3 BP 110/68 Blood Pressure Location Lt brachial Position Sitting Respiration 18 Pulse 65 Pulse Source Pulse Oximeter Temp 98.3 F Temp Source Oral Pulse Oximetry (%) 95 Oxygen Delivery Method Room Air Intake Visit Reasons: Neck pain Intake Note: Pt is here today for a sick visit. Pt c/o neck pain for 2 months. Allergies No Known Allergies Allergy (Verified 08/09/24 12:53) Medication List - Last Reconciled 08/09/24 by Shelia Krishnan MD baclofen 10 mg PO BEDTIME [id number]-copper-jono 325 mg-12.5 mcg -2.75 mg (Citracal-D3 Maximum Plus) 2 tabs PO DAILY cyanocobalamin (vitamin B-12) 1,000 mcg PO DAILY meloxicam 15 mg PO DAILY sertraline 50 mg PO DAILY Tobacco use date assessed: 08/09/24 Fall risk assessment: 1 Fall in past year Last assessed Fall Risk: 08/09/24 Dental Screening Dental Screen Date: 08/09/24 Did you have a dental visit in the last 12 months?: Yes Did you have a dental problem in the last 6 months where you did not have access to dental care?: No Was dental information given to patient?: Patient has dentist HPI Neck pain HPI Details Pt presents complaining of 2 months of neck pain on and off right more than left worse with change in position. Patient denies weakness or numbness in extremities recent accidents. [facility] Medical History (Updated 08/09/24 @ 15:45 by Shelia Krishnan MD) Annual physical exam Anxiety and depression Neck pain Hx of complete eye exam Surgical History Hx of parathyroidectomy H/O colonoscopy Hx of appendectomy H/O tubal ligation Family History Father No problems noted. Mother COPD (chronic obstructive pulmonary disease) Congestive heart failure Social History Household Members: None Household Members Other:: lives alone, 3 daughters (in [place] and [place]), retired Housing: House Patient Tobacco Use Status: Former Tobacco user e-Cigarette/Vaping Use: Never Used service: No Current occupational status: retired Cognitive needs: No Hearing needs: No Vision needs: Yes Questionnaire PHQ-9 Over the last 2 weeks, how often have you been bothered by any of the following problems? 1. Little interest or pleasure in doing things: several days 2. Feeling down, depressed, or hopeless: several days 3. Trouble falling or staying asleep, or sleeping too much: not at all 4. Feeling tired or having little energy: several days 5. Poor appetite or overeating: not at all 6. Feeling bad about yourself - or that you are a failure or have let yourself or your family down: several days 7. Trouble concentrating on things, such as reading the newspaper or watching television: not at all 8. Moving or speaking so slowly that other people could have noticed. Or the opposite - being so fidgety or restless that you have been moving around a lot more than usual: not at all 9. Thoughts that you would be better off or of hurting yourself in some way: not at all Total score: 4 Depression Screening Interpretation: Negative Depression Screening Done: Yes 32410 - PHQ-9 Billing: Yes Source: Developed by Drs. Ricardo Campuzano, Cynthia Qureshi, Miguel Meraz and colleagues, with an educational peace from [employer]. Thrive Questionnaire Date Thrive assessed: 08/09/24 I am a: Patient What is your living situation today?: I have a steady place to live Within the past 12 months, did the food you bought not last and you didn't have the money to get more?: Never true Within the past 12 months, did you worry whether your food would run out before you got money to buy more?: Never true Do you have trouble paying for medicines?: No Do you have trouble getting transportation to medical appointments?: No Do you have trouble paying your heating and electricity bill?: No Do you have trouble taking care of your child, family member or friend?: No Do you have trouble with day-to-day activities such as bathing, preparing meals, shopping, managing finances, etc.?: No Are you currently unemployed and looking for a job?: No Are you interested in more education?: No Please select the resources that you would like help with: None Currently or been in a relationship where the following occur: No concerns reported THRIVE Score: 0 AUDIT C Alcohol Use Questionnaire (AUDIT-C) 1. How often do you have a drink containing alcohol?: Monthly or less 2. How many drinks containing alcohol do you have on a typical day when you are drinking?: 1 or 2 3. How often do you have six or more drinks on one occasion?: Never Total Score: 1 RENU-7 AMB Questionnaire RENU-7 Date RENU - 7 assessed: 08/09/24 Feeling nervous, anxious, or on edge: 1 = Several days Not being able to stop or control worryin = Not at all Worrying too much about different things: 0 = Not at all Trouble relaxin = Not at all Being so restless that it is hard to sit still: 0 = Not at all Becoming easily annoyed or irritable: 0 = Not at all Feeling afraid as if something awful might happen: 0 = Not at all Total RENU-7 score (0-4 normal; 5-9 mild; 10-14 moderate; 15-21 severe): 1 Source: Developed by Drs. Ricardo Campuzano, Cynthia Qureshi, Miguel Meraz and colleagues, with an educational peace from [employer]. RENU-7 Assessment Billing RENU-7 Assessment Tool: RENU-7 Assessment 37313 Review of Systems Const All systems reviewed & are unremarkable except as noted in HPI and below Eyes Reports no additional complaints ENT Reports no additional complaints Card Reports no additional complaints Resp Reports no additional complaints GI Reports no additional complaints Reports no additional complaints Physical exam (Primary Care) Vital Signs: Last Vital Signs Temp 98.3 F 08/09/24 12:49 Pulse 65 08/09/24 12:49 Resp 18 08/09/24 12:49 BP 110/68 08/09/24 12:49 Pulse Ox 95 08/09/24 12:49 Oxygen Delivery Method Room Air 08/09/24 12:49 BMI result Body Mass Index 27.3 Tobacco/Smoking Status: Tobacco use Status Tobacco use date assessed 08/09/24 08/09/24 12:56 Patient Tobacco Use Status Former Tobacco user 08/09/24 12:49 e-Cigarette/Vaping Use Never Used 08/09/24 12:49 PHQ-9: PHQ-9 Score PHQ-9: Total score 4 08/09/24 13:19 Depression Screening Interpretation: Negative Thrive Assessment: Date of Thrive Assessment Date Thrive assessed 08/09/24 08/09/24 12:56 Currently or been in a relationship where the following occur: No concerns reported Const General: no acute distress HENMT Head: Yes normal to inspection Mouth: Normal oral and palatal mucosa present Resp Effort & Inspection: normal respiratory effort Auscultation: clear to auscultation bilaterally Cardio Rhythm: regular rhythm Heart sounds: S1 normal heart sound present and S2 normal heart sound present Back/Spine/Pelvis Other: There is a decreased range of motion in C-spine , paraspinal tenderness in lower cervical region right more than left, upper extremities motor strength 5/5, deep tendon reflexes 1+ bilaterally Coding Level of Care Code Est Pt Level 3 (70311) Diagnoses Neck pain M54.2 Additional Codes RENU-7 Assessment Billing - RENU-7 Assessment Tool: RENU-7 Assessment 51724 ([id number]) PHQ-9 - 76402 - PHQ-9 Billing: Yes ([id number]) Assessment & Plan Assessment & Plan (1) Neck pain: Comment: Musculoskeletal Code(s): M54.2 - Cervicalgia Category: Medical Plan: Meloxicam baclofen prescribed. Patient is referred to PT Orders: Orders PT Evaluation and Treatment Today M54.2 - Cervicalgia Medications: New meloxicam 15 mg PO DAILY 10 tabs 0RF baclofen 10 mg PO BEDTIME 10 tabs 0RF
--- OUTSIDE RECORDS SUMMARY | 2024-08-09 14:12 | XMS_ITS | Patient Health Record ---
Author Organization [facility] Address [address] [place] [address] Care Team Providers Care Steam Pan Sponger Name Role Phone Shelia Krishnan Primary Care Provider Ernesto Ahn Unavailable Unavailable Allergies No Known Allergies Reason For Referral No Information Medications Medication SIG (Take, Route, Frequency, Duration) Notes Start Date End Date Status Ciclopirox 0.77 % 1 application Externally Once a day for 90 days 06/27/2020 Not-Taking Ciclopirox 0.77 % 1 application Externally apply to the effected toenail once daily Not-Taking Tavaborole 5 % 1 application Externally Once a day for 90 days 12/24/2020 Not-Taking Excedrin Migraine 2 tab every 6 hr prn Active Wellbutrin XL 150 MG 1 tablet in the morning Orally Once a day Not-Taking Terbinafine HCl 250 MG 1 tablet Orally Once a day for 30 days 06/04/2021 Active Plan Of Treatment No Information Medical (General) History Medical History History ICD Code 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
== END 2024-08-09 13:31 | disposition home or self-care (01) ==
LOC: HO.HMCC 12:03
PROVIDERS: PCP Internal Medicine; Visit Provider Internal Medicine
DX: M54.2 Cervicalgia (principal)

== ENCOUNTER → 2024-08-09 12:02 | Outpatient (BNVA) | payer MEDICARE, SELFPAY | PROVIDERS: PCP Internal Medicine; Visit Provider Internal Medicine | DX: M54.2 Cervicalgia (principal) | CPT/HCPCS: 96127; 99212 ==

== ENCOUNTER 2025-02-04 12:00 | Outpatient (AMB) | payer MEDICARE, SELFPAY ==
[2025-02-04 12:02] VITALS: BP 122/74; PULSE 76; RESP 17; TEMP 36.7; O2SAT 97; BMI 29.3
--- NOTE | 2025-02-04 12:02 | A.OFFPC_ITS ---
Vital Signs 02/04/25 12:02 Height 5 ft 5 in Weight 176 lb BMI 29.3 BP 122/74 Blood Pressure Location Lt brachial Position Sitting Respiration 17 Pulse 76 Pulse Source Pulse Oximeter Temp 98.1 F Temp Source Oral Pulse Oximetry (%) 97 Oxygen Delivery Method Room Air Intake Visit Reasons: Annual PE Intake Note: Pt is here today for PE. Allergies No Known Allergies Allergy (Verified 02/04/25 12:03) Medication List - Last Reconciled 02/04/25 by Shelia Krishnan MD baclofen 10 mg PO BEDTIME [id number]-rffd-copper-jono 325 mg-12.5 mcg -2.75 mg (Citracal-D3 Maximum Plus) 2 tabs PO DAILY cyanocobalamin (vitamin B-12) 1,000 mcg PO DAILY meloxicam 15 mg PO DAILY sertraline 50 mg PO DAILY Tobacco use date assessed: 02/04/25 Dental Screening Dental Screen Date: 08/09/24 HPI Annual PE HPI Details Pt presents for PE. PFSH Medical History Annual physical exam Anxiety and depression Neck pain Hx of complete eye exam Surgical History Hx of parathyroidectomy H/O colonoscopy Hx of appendectomy H/O tubal ligation Family History Father No problems noted. Mother COPD (chronic obstructive pulmonary disease) Congestive heart failure Social History Household Members: None Household Members Other:: lives alone, 3 daughters (in [place] and [place]), retired Housing: House Patient Tobacco Use Status: Former Tobacco user e-Cigarette/Vaping Use: Never Used service: No Current occupational status: retired Cognitive needs: No Hearing needs: No Vision needs: Yes Questionnaire Thrive Questionnaire Date Thrive assessed: 08/09/24 I am a: Patient What is your living situation today?: I have a steady place to live Within the past 12 months, did the food you bought not last and you didn't have the money to get more?: Never true Within the past 12 months, did you worry whether your food would run out before you got money to buy more?: Never true Do you have trouble paying for medicines?: No Do you have trouble getting transportation to medical appointments?: No Do you have trouble paying your heating and electricity bill?: No Do you have trouble taking care of your child, family member or friend?: No Do you have trouble with day-to-day activities such as bathing, preparing meals, shopping, managing finances, etc.?: No Are you currently unemployed and looking for a job?: No Are you interested in more education?: No Please select the resources that you would like help with: None Currently or been in a relationship where the following occur: No concerns reported THRIVE Score: 0 RENU-7 AMB Questionnaire RENU-7 Date RENU - 7 assessed: 08/09/24 Source: Developed by Drs. Ricardo Campuzano, Cynthia Qureshi, Miguel Meraz and colleagues, with an educational peace from [employer]. Review of Systems Const All systems reviewed & are unremarkable except as noted in HPI and below Eyes Reports no additional complaints ENT Reports no additional complaints Card Reports no additional complaints Resp Reports no additional complaints GI Reports no additional complaints Reports no additional complaints Physical exam (Primary Care) Vital Signs: Last Vital Signs Temp 98.1 F 02/04/25 12:02 Pulse 76 02/04/25 12:02 Resp 17 02/04/25 12:02 BP 122/74 02/04/25 12:02 Pulse Ox 97 02/04/25 12:02 Oxygen Delivery Method Room Air 02/04/25 12:02 BMI result Body Mass Index 29.3 Tobacco/Smoking Status: Tobacco use Status Tobacco use date assessed 02/04/25 02/04/25 12:03 Patient Tobacco Use Status Former Tobacco user 02/04/25 12:03 e-Cigarette/Vaping Use Never Used 02/04/25 12:03 Thrive Assessment: Date of Thrive Assessment Date Thrive assessed 08/09/24 02/04/25 12:03 Currently or been in a relationship where the following occur: No concerns reported Const General: no acute distress HENMT Head: Yes normal to inspection Face and sinus: Yes normal facial exam Mouth: Normal oral and palatal mucosa present Eyes General: appearance normal, both eyes and all related structures Neck Neck: Yes no lymphadenopathy and Yes supple Resp Effort & Inspection: normal respiratory effort Auscultation: clear to auscultation bilaterally Cardio Rhythm: regular rhythm Heart sounds: S1 normal heart sound present and S2 normal heart sound present GI Inspection: Yes normal to inspection Palpation (GI): Soft to palpation Percussion: Yes normal to percussion Auscultation: normal bowel sounds Coding Level of Care Code Est Pt Prev Care >65y(77874) Diagnoses Postmenopausal Z78.0 Vitamin D deficiency E55.9 Hypercalcemia E83.52 Mammogram declined Z53.20 Anxiety and depression F41.9; F32.A Annual physical exam Z00.00 Assessment & Plan Assessment & Plan (1) Postmenopausal: Code(s): Z78.0 - Asymptomatic menopausal state Category: Medical Plan: Check DEXA (2) Vitamin D deficiency: Code(s): E55.9 - Vitamin D deficiency, unspecified Category: Medical Plan: Continue vitamin-D (3) Hypercalcemia: Comment: S/P parathyroidectomy Code(s): E83.52 - Hypercalcemia Category: Medical Plan: Monitor calcium and PTH level (4) Mammogram declined: Comment: 10/26 Code(s): Z53.20 - Procedure and treatment not carried out because of patient's decision for unspecified reasons Category: Medical Plan: Patient declined mammogram (5) Anxiety and depression: Comment: Controlled on sertraline Code(s): F41.9 - Anxiety disorder, unspecified; F32.A - Depression, unspecified Category: Medical Plan: Continue sertraline (6) Annual physical exam: Code(s): Z00.00 - Encounter for general adult medical examination without abnormal findings Category: Medical Plan: Well-balanced diet regular physical activity discussed with the patient. She will return for fasting blood work DEXA will be scheduled. Orders: Orders Complete Blood Count Auto Diff Today E55.9 - Vitamin D deficiency, unspecified, E83.52 - Hypercalcemia, Z78.0 - Asymptomatic menopausal state Lipid Panel Today E55.9 - Vitamin D deficiency, unspecified, E83.52 - Hypercalcemia, Z78.0 - Asymptomatic menopausal state Vitamin D 25-OH Total Today E55.9 - Vitamin D deficiency, unspecified, E83.52 - Hypercalcemia, Z78.0 - Asymptomatic menopausal state Comprehensive Callery. Panel Fast 1 Year E55.9 - Vitamin D deficiency, unspecified, Z00.00 - Encounter for general adult medical examination without abnormal findings Lipid Panel 1 Year E55.9 - Vitamin D deficiency, unspecified, Z00.00 - Encounter for general adult medical examination without abnormal findings Comprehensive [place]. Panel Fast Today E55.9 - Vitamin D deficiency, unspecified, E83.52 - Hypercalcemia, Z78.0 - Asymptomatic menopausal state TSH reflex Free T4 Today E55.9 - Vitamin D deficiency, unspecified, E83.52 - Hypercalcemia, Z78.0 - Asymptomatic menopausal state Parathyroid Hormone Intact Today E55.9 - Vitamin D deficiency, unspecified, E83.52 - Hypercalcemia, Z78.0 - Asymptomatic menopausal state XR DEXA axial skeleton Today E55.9 - Vitamin D deficiency, unspecified, E83.52 - Hypercalcemia, Z78.0 - Asymptomatic menopausal state Vitamin B12 and Folate Today E53.8 - Deficiency of other specified B group vitamins Complete Blood Count Auto Diff 1 Year E55.9 - Vitamin D deficiency, unspecified, Z00.00 - Encounter for general adult medical examination without abnormal findings Vitamin D 25-OH Total 1 Year E55.9 - Vitamin D deficiency, unspecified, Z00.00 - Encounter for general adult medical examination without abnormal findings Medications: Refilled sertraline 50 mg PO DAILY 90 tabs 3RF
--- OUTSIDE RECORDS SUMMARY | 2025-02-04 15:50 | XMS_ITS | Clinical Summary ---
Author Organization [facility] Address [address] [place] [address] Care Team Providers Care Regulatory Compliance Manager Name Role Phone Jude MI MD, Ernesto Abel Primary Care Provider [phone]- [phone] Allergies No known active allergies Medications Medication Sig Dispensed Refills Start Date End Date Status buPROPion (WELLBUTRIN XL) 150 MG 24 hr tablet 0 01/05/2017 Active meloxicam (MOBIC) 15 MG tablet Take 1 tablet (15 mg total) by mouth daily. 30 tablet 0 02/22/2017 Active Aspirin-Acetaminop hen-Caffeine (EXCEDRIN EXTRA STRENGTH PO) Take by mouth. 0 02/26/2016 Active buPROPion (ZYBAN) 150 MG 12 hr tablet 1 tablet Orally Twice a day 0 Active ciclopirox 0.77 % gel Apply to the affected toenail once daily 0 02/15/2019 Active Paxlovid 20 x 150 MG & 10 x 100MG TBPK tablet therapy pack Take 3 tablets by mouth 2 (two) times a day. 0 07/01/2021 Active predniSONE (DELTASONE) tablet 20 mg See Instructions, 2 tablets daily for 5 days and then 1 tablet daily for 5 days, # 15 tablet, 0 Refills, Maintenance, 11/21/20 8:01:00 EDT, [facility] #[id number], Partial fill upon patient request if the prescription is for a schedule II opioid... 0 11/21/2020 Active terbinafine (LamiSIL) 250 MG tablet Take 250 mg by mouth daily. 0 06/04/2021 Active Hospital, Clinic, or Other Facility Administered Medication Ordered Dose Route Frequency Start Date End Date Status methylPREDNISolone acetate (DEPO-Medrol) injection 40 mgIndications:Primary osteoarthritis of right knee 40 mg IX Once 07/08/2021 Active lidocaine HCl (XYLOCAINE) 1 % injection soln 4 mLIndications:Primary osteoarthritis of right knee 4 mL IJ Once 07/08/2021 Active Active Problems No known active problems Family History Medical History Relation Name Comments Hypertension Mother Relation Name Status Comments Mother Social History Tobacco Use Types Packs/Day Years Used Date Smoking Tobacco: Never Smokeless Tobacco: Never Alcohol Use Standard Drinks/Week Comments No 0 (1 standard drink = 0.6 oz pur e alcohol) Sex and Gender Information Value Date Recorded Sex Assigned at Female 07/07/2021 10:25 AM EDT Gender Identity Female 07/07/2021 10:25 AM EDT Sexual Orientation Not on file Job Start Date Occupation Industry Not on file Not on file Not on file Last Filed Vital Signs Vital Sign Reading Time Taken Comments Blood Pressure - - Pulse - - Temperature - - Respiratory Rate - - Oxygen Saturation - - Inhaled Oxygen Concentration - - Weight 68 kg (150 lb) 07/07/2021 9:54 AM EDT Height 165.1 cm (5' 5 ) 07/07/2021 9:54 AM EDT Body Mass Index 24.96 07/07/2021 9:54 AM EDT Plan of Treatment Health Maintenance Due Date Last Done Comments Hepatitis C Screening 1950 Depression Screening 1960 Preventative Health Evaluation 1966 DTap / Tdap / Td (1 - Tdap) 09/16/1967 Shingrix-Zoster Vaccine (1 of 2) 1998 Fall Risk Assessment 2013 Osteoporosis Screening (DEXA Scan) 2013 RSV Adult > 60+ Yrs or (1 - 1-dose 75+ series) 09/16/2023 COVID-19 Vaccine ( season) 2024 06/05/2021, 01/28/2021, 06/17/2020, Additional history exists Influenza Vaccine (#1) 2024 , 11/01/2019, 12/30/2017, Additional history exists Pneumococcal Vaccine Completed 02/26/2016, 02/04/20 15 Hepatitis B Vaccines Aged Out No long er eligible based on patient's age to complete this topic RSV Ped < 20 months Aged Out No longe r eligible based on patient's age to complete this topic Care Teams Regulatory Compliance Manager Relationship Specialty Start Date End Date Ernesto Roque II, MD [address] [place] [id number] PCP - General Internal Medicine 02/22/17
== END 2025-02-04 12:58 | disposition home or self-care (01) ==
LOC: HO.HMCC 12:01
PROVIDERS: PCP Internal Medicine; Visit Provider Internal Medicine
DX: Z00.00 Encounter for general adult medical examination without abnormal findings (principal); Z78.0 Asymptomatic menopausal state; E55.9 Vitamin D deficiency, unspecified; E83.52 Hypercalcemia; Z53.20 Procedure and treatment not carried out because of patient's decision for unspecified reasons; F41.9 Anxiety disorder, unspecified; F32.A Depression, unspecified

== ENCOUNTER → 2025-02-04 12:00 | Outpatient (BNVA) | payer MEDICARE, SELFPAY | PROVIDERS: PCP Internal Medicine; Visit Provider Internal Medicine | DX: Z00.00 Encounter for general adult medical examination without abnormal findings (principal); E83.52 Hypercalcemia; F41.9 Anxiety disorder, unspecified; F32.A Depression, unspecified; Z78.0 Asymptomatic menopausal state | CPT/HCPCS: 99397 ==

== ENCOUNTER 2025-02-19 09:16 | Outpatient (REF) | payer MEDICARE, SELFPAY ==
--- OUTSIDE RECORDS SUMMARY | 2025-02-19 10:41 | XMS_ITS | Clinical Summary ---
Author Organization [facility] Prior to 08/04/24 Address [address] [place] [address] Care Team Providers Care Seamless Hosiery Knitter Name Role Phone Jude MI MD, Ernesto Abel Primary Care Provider [phone]- [phone] Allergies No known active allergies Medications Medication [...] 15 tablet, 0 Refills, Maintenance, 11/21/20 8:01:00 T, [facility] #[id number], Partial fill upon patient request if the [...] age to complete this topic Care Teams Seamless Hosiery Knitter Relationship Specialty Start Date End Date Ernesto Roque II, MD [address] [place] [id number] PCP - General Internal Medicine 02/22/17
--- OUTSIDE RECORDS SUMMARY | 2025-02-19 10:41 | XMS_ITS | Patient Health Record ---
Author Organization [facility] Address [address] [place] [address] Care Team Providers Care Chief Telephone Operator Name Role Phone Shelia Krishnan Primary Care Provider Ernesto Ahn Unavailable Unavailable Allergies No Known Allergies Reason For Referral No Information Medications Medication SIG (Take, Route, Frequency, Duration) Notes Start Date End Date Status Ciclopirox 0.77 % 1 application Externally Once a day; Duration: 90 days 06/27/2020 Not-Taking Ciclopirox 0.77 % 1 application Externally apply to the effected toenail once daily Not-Taking Tavaborole 5 % 1 application Externally Once a day; Duration: 90 days 12/24/2020 Not-Taking Excedrin Migraine 2 tab every 6 hr prn Active Wellbutrin XL 150 MG 1 tablet in the morning Orally Once a day Not-Taking Terbinafine HCl 250 MG 1 tablet Orally Once a day; Duration: 30 days 06/04/2021 Active Plan Of Treatment [...]
[2025-02-19 10:44] LABS: MANUAL DIFF FLAG NO
[2025-02-19 10:59] LABS: Hematocrit 41.8 % (37.0-47.0); Hemoglobin 14.1 g/dl (12.0-16.0); Imm Gran Abs Auto 0.02 X10*3/uL (0.00-0.03); Imm Gran Pct Auto 0.4 % (0.0-0.4); Lymphocytes Absolute Auto 1.8 X10*3/uL (1.2-4.9); Mean Corpuscular HGB Conc 33.7 g/dl (31.0-35.0); Mean Corpuscular Hemoglobin 29.1 pg (27.0-33.0); Mean Corpuscular Volume 86.4 fL (80.0-98.0); NRBC Abs Auto 0.000 X10*3/uL (0.0-0.012); NRBC Pct Auto 0.0 /100WBC (0.0-0.2); Platelet Count 303 X10*3/uL (160-400); Red Blood Count 4.84 X10*6/uL (4.20-5.50); White Blood Count 5.1 X10*3/uL (4.8-10.8)
[2025-02-19 11:18] LABS: Alanine Aminotransferase 16 U/L (0-31); Albumin Level 4.3 g/dL (3.5-5.0); Alkaline Phosphatase 74 U/L (39-117); Anion Gap 13 (12-20); Aspartate Amino Transferase 24 U/L (5-31); Blood Urea Nitrogen 16 mg/dL (9-16); Calcium 9.4 mg/dL (8.4-10.2); Carbon Dioxide 28 mmol/L (22-29); Chloride 106 mmol/L (96-108); Cholesterol 230 mg/dL (<200); Estimated Glomerular Filt Rate > 60; HDL Cholesterol 76 mg/dL (>40); Potassium 4.4 mmol/L (3.3-5.1); Sodium 143 mmol/L (135-145); Total Protein 6.9 g/dL (6.5-8.0); Triglycerides 117 mg/dL (<150)
[2025-02-19 11:40] LABS: Folate 6.1 ng/mL (> or = 4.0); Vitamin B12 828 pg/mL (200-900)
[2025-02-19 11:44] LABS: Parathyroid Hormone Intact 54.4 pg/mL (8.7-77.1)
== END 2025-02-19 09:17 | disposition home or self-care (01) ==
LOC: HO.HMGCLDS 09:16
PROVIDERS: PCP Internal Medicine; Visit Provider Internal Medicine
DX: E53.8 Deficiency of other specified B group vitamins (principal); E55.9 Vitamin D deficiency, unspecified; Z13.6 Encounter for screening for cardiovascular disorders; Z78.0 Asymptomatic menopausal state
CPT/HCPCS: 36415; 80053; 80061; 82306; 82607; 82746; 83970; 84443; 85025